=== PATIENT | female | born 1980 | race Caucasian/White ===

== ENCOUNTER 2016-06-18 06:29 | Day surgery (SDC) | payer OTHER ==
[~2016-06-18 06:29] MED LIST: ASPIRIN 81 LOW81 MG PO; PREDNISONE10 MG PO; PROVENTIL0.083 % IN; TESSALON PER100 MG PO; VENTOLIN HFA IN; ZITHROMAX250 MG PO
[2016-06-18] MEDS ORDERED: LORTAB 7.57.5 MG PO (09:09)
[2016-06-18 10:10] VITALS: BP 153/93
== END 2016-06-18 11:35 | disposition home or self-care (01) | DRG 743 ==
LOC: ORM 06:29
PROVIDERS: ATTEND Obstetrics & Gynecology
PROC: 0U5B8ZZ Destruction of Endometrium, Via Natural or Artificial Opening Endoscopic (ICD-10-PCS; principal; 2016-06-18)
PROC: 0UDB8ZX Extraction of Endometrium, Via Natural or Artificial Opening Endoscopic, Diagnostic (ICD-10-PCS; 2016-06-18)
PROC: 0UL74CZ Occlusion of Bilateral Fallopian Tubes with Extraluminal Device, Percutaneous Endoscopic Approach (ICD-10-PCS; 2016-06-18)
DX: N92.1 Excessive and frequent menstruation with irregular cycle (principal); N94.6 Dysmenorrhea, unspecified; Z30.2 Encounter for sterilization
CPT/HCPCS: J2710

== ENCOUNTER 2017-06-26 16:35 | Emergency (ER) | payer SELFPAY ==
[~2017-06-26] VITALS: Ht 162.6 cm; Wt 79.0 kg
[~2017-06-26 16:35] MED LIST changes: +LORTAB 7.57.5 MG PO
[2017-06-26] MEDS ORDERED: DELTASONE20 MG PO (17:28)
[2017-06-26] MEDS ORDERED: EPIPEN 2-P0.3 MG/0.3 SC (17:28)
[2017-06-26 17:52] VITALS: BP 135/81
== END 2017-06-26 17:52 | disposition home or self-care (01) | DRG 607 ==
LOC: ED 16:35
DX: L50.0 Allergic urticaria (principal); F17.210 Nicotine dependence, cigarettes, uncomplicated; I10 Essential (primary) hypertension